=== PATIENT | female | born 1975 | race Caucasian/White ===

== ENCOUNTER 2018-04-09 11:46 | Outpatient (CLI) | payer BC ==
[~2018-04-09] VITALS: Ht 154.9 cm; Wt 88.5 kg
[~2018-04-09 11:46] MED LIST: ACHD5005 PO; AMLO2.5T PO; AMLO5TAB2 PO; ASCO10006 PO; BUPR100T8 PO; BUSP10TA95 PO; BUSP15TA60 PO; CALC1CAP5 PO; CARI350T PO; CARI350T27 PO; CETI-214 PO; CODE118S4 PO; CTRZ10T; CYCL-97 PO; CYCL10TA9 PO; DESV100T PO; DIAZ5TAB3 PO; DICY20TA10 PO; DILT120C10; DIPH25TA31 PO; FLX20C; FURO40TA4 PO; GABA-488 PO; HYDR-34 PO; HYDR50TA76 PO; LOPE2CAP PO; LORA10TA7 PO; MAGN250T13 PO; MECL-106 PO; MELO15TA39 PO; META800T PO; METH20TA36 PO; METO5TAB2 GT; METO5TAB2 PO; METO5TAB79 PO; MOME13HF IH; MORP100T37 PO; MORP100T8 PO; MTF500TCR; MULT-221 PO; MULT-305 PO; NALO25TA PO; OMEP20CA12 PO; OXYC-465 PO; PENI500T PO; POLY119P5 PO; POTA10TA10 PO; PROM25TA14 PO; ROPI4TAB3 PO; ROPINIROLE PO; RT-ALBUINH IH; SENN-137 PO; SPIR25TA5 PO; TEMA30CA PO; TRAZ150T42 PO; TRAZ150T72 PO; TRIAMTERENE/HCTZ; TURM500C4 PO; VITA1CAP PO; WARF4TAB70 PO; [UNRECOGNIZED DRUG - CODE] PO; [UNRECOGNIZED DRUG - OTHER]
[2018-04-09] MEDS ORDERED: GLUC-116 PO (12:02)
[2018-04-09] MEDS ORDERED: WARF-48 PO (12:02)
[2018-04-09] MEDS ORDERED: MULT-985 PO (12:02)
[2018-04-09] MEDS ORDERED: CARI350T27 PO (12:02)
[2018-04-09] MEDS ORDERED: MORP60CA18 PO (12:02)
[2018-04-09 12:08] VITALS: BP 118/68
== END 2018-04-09 14:37 | disposition home or self-care (01) ==
LOC: PREOP 11:46
PROVIDERS: ATTEND Orthopaedic Surgery
DX: Z01.818 Encounter for other preprocedural examination (principal)
CPT/HCPCS: 87081

== ENCOUNTER 2018-04-17 07:46 | Day surgery (SDC) | payer BC ==
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
[~2018-04-17] VITALS: Ht 154.9 cm; Wt 88.5 kg
[~2018-04-17 07:46] MED LIST changes: +GLUC-116 PO; +MORP60CA18 PO; +MULT-985 PO; +WARF-48 PO
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
[2018-04-17 08:00] VITALS: BP 119/72
[2018-04-17] MEDS ORDERED: ceFAZolin INJECTION 1,000 MG in NS (IVPB) 50 ML IV ONE (08:00)
[2018-04-17] MEDS: LACTATED RINGERS 1,000 ML IV PRN ×2 (08:15→10:23)
[2018-04-17] MEDS ORDERED: BUPIVACAINE 0.25% 30 ML (SENSORCAINE) VIAL ONE (08:25)
[2018-04-17] MEDS ORDERED: morphine PF (DURAMORPH) 10 MG/10 ML AMP ONE (08:25)
[2018-04-17] MEDS ORDERED: ONDANSETRON 4 MG/2 ML (SDV) Z0FRAN ONE (08:27)
[2018-04-17] MEDS ORDERED: fentaNYL INJECTION 100 MCG/2 ML AMP ONE ×3 (08:27→10:17)
[2018-04-17] MEDS ORDERED: SEVOFLURANE (ULTANE) 15 ML INHAL SOLN ONE ×3 (08:27→09:50)
[2018-04-17] MEDS ORDERED: DEXAMETHASONE 10 MG/ML (DECADRON) 1 ML VIAL ONE (08:27)
[2018-04-17] MEDS ORDERED: MIDAZOLAM 2 MG/2 ML (VERSED) VIAL ONE (08:27)
[2018-04-17] MEDS ORDERED: LIDOCAINE PF 2% 5 ML (XYLOCAINE) VIAL ONE (08:27)
[2018-04-17] MEDS ORDERED: proPOfol 200 MG/20 ML (DIPRIVAN) VIAL IV ONE (08:27)
[2018-04-17 08:50] LABS: BUN/CREATININE RATIO 24; CALCIUM 9.4 MG/DL (8.5-10.1); CARBON DIOXIDE 24 MMOL/L (21-32); CHLORIDE 103 MMOL/L (98-107); CREATININE SERUM 0.85 MG/DL (0.60-1.30); GFR ESTIMATED > 60; GLUCOSE 90 MG/DL (70-105); POTASSIUM 3.4 MMOL/L (3.6-5.0); SODIUM 136 MMOL/L (135-145)
[2018-04-17 08:52] LABS: INR 1.1 (0.8-1.4); PROTHROMBIN TIME PATIENT 14.1 SEC (12.2-14.7)
--- NOTE | 2018-04-17 09:21 | Progress Note-Pre Operative ---
Pre-Operative Progress Note H&P Reviewed The H&P was reviewed, patient examined and no changes noted. Date Seen by Provider: Apr 17, 2018 Time Seen by Provider: 09:19 Date H&P Reviewed: Apr 17, 2018 Time H&P Reviewed: 09:19 Pre-Operative Diagnosis: left patella condromalacia TUAN ADAIR MD Apr 17, 2018 09:21
--- NOTE | 2018-04-17 09:22 | Progress Note-Post Operative ---
Post-Operative Progess Note Surgeon (s)/Education And Development Manager (s) Surgeon TUAN ADAIR MD Education And Development Manager: jacquelin marr Pre-Operative Diagnosis left patella condromalacia Post-Operative Diagnosis left knee medial meniscus tear and chondromalacia medial femoral condyle Procedure & Operative Findings Date of Procedure 04/17/18 Procedure Performed/Findings left knee arthroscopic partial medial meniscectomy and chondroplasty of the medial femoral condyle Anesthesia Type GETA Estimated Blood Loss Estimated blood loss (mL): minimal Specimens/Packing Specimens Removed none Packing: none TUAN ADAIR MD Apr 17, 2018 09:22
[2018-04-17] MEDS ORDERED: HYDROcodone/APAP 7.5 MG/325 MG (LORTAB, LORCET PLUS) TABLET PO PRN (09:30)
[2018-04-17] MEDS ORDERED: MEPERIDINE (DEMEROL) INJ 50 MG/ML IVP PRN (10:00)
[2018-04-17] MEDS ORDERED: ONDANSETRON 4 MG/2 ML (SDV) Z0FRAN IVP PRN (10:00)
[2018-04-17] MEDS ORDERED: morphine INJ 10 MG/ML 1ML (SYR OR VIAL) ONE (10:03)
[2018-04-17] MEDS: morphine INJ 10 MG/ML 1ML (SYR OR VIAL) IVP PRN ×2 (10:07→10:14)
[2018-04-17] MEDS: fentaNYL INJECTION 100 MCG/2 ML AMP IVP PRN ×2 (10:22→10:32)
[2018-04-17 10:55] VITALS: BP 124/69
[2018-04-17 10:56] VITALS: BP 124/69
[2018-04-17 11:25] VITALS: BP 121/65
--- NOTE | 2018-04-17 11:35 | Physical Therapy Ortho Eval ---
PT Orthopedic Evaluation Type of Surgery Knee Scope left knee, WBAT Prior Level of Function Current Living Status: Spouse Locomotion (Upon Admit): Independent Established Durable Medical Eq: Straight Cane Subjective Subjective Patient in bed pre tx, agrees to PT, has 3/10 pain in left knee. Entry Into Home: Stairs With Railing Steps Into Home: 3 Steps Accessories: Railing Present Objective Objective Patient has intact light touch sensation about her left knee. Motor Control Motor Control: Motor Control WNL ROM left knee extension -1 degrees, flexion 90 degrees Strength NT Transfer Transfers (B, C, W/C) (FIM): 5 Gait Gait Assistive Device: FWW Left Lower Extremity: Left Weight Bearing Status LLE: Weight Bearing/Tolerated Gait (FIM): 5 Distance: 200' Gait Level of Assist: 5 Summary/Comments Patient ambulated 200' with a rolling walker with SBA and went up and down 1 step using a rolling walker with CGA. Patient ambulates with decreased flexion of left knee. Treatment Rendered Treatment: Therapeutic Exercises, Gait Train, Step Train Exercise Instruction: Quad Sets, Heel Slides, Ankle Pumps Assessment/Goals Goal Time Frame: 1 Visit Plan Treatment Plan: Discharge PT/Family Agrees to Plan: Yes Time Time In: 1110 Time Out: 1125 Total Billed Treatment Time: 15 Billed Treatment Time 1 visit EVL 15' Yes PT/OT Therapy GCodes Therapy Functional Limitation: Physical Therapy Test(s)/Tool used to determine: Level of Assistance Scale Functional Limitation-Current Charge Code: MOBCUR Modifier: CI Functional Limitation-Goal Charge Code: MOBGOAL Modifier: CI Functional Limitation-D/C Charge Codes: MOBDC Modifier: CI LIZBETH BAPTISTE PT Apr 17, 2018 11:35
[2018-04-17 11:55] VITALS: BP 131/69
--- NOTE | 2018-04-17 14:03 | Anesthesia-General Post-Op ---
General Patient Condition Mental Status/LOC: Same as Preop Cardiovascular: Satisfactory Nausea/Vomiting: Absent Respiratory: Satisfactory Pain: Controlled Complications: Absent Post Op Complications Complications None Follow Up Care/Instructions Patient Instructions None needed. Anesthesia/Patient Condition Patient Condition Patient was seen after the procedure and she was doing well, no complaints, stable vital signs, no apparent adverse anesthesia problems. CHARO CALHOUN DO Apr 17, 2018 14:03
--- NOTE | 2018-04-17 17:10 | OPERATIVE REPORT ---
DATE OF SERVICE: PREOPERATIVE DIAGNOSIS: Left knee chondromalacia patella. POSTOPERATIVE DIAGNOSES: 1. Left knee medial meniscal tear. 2. Left knee chondromalacia of the medial femoral condyle. PROCEDURE: 1. Left knee arthroscopic partial medial meniscectomy. 2. Left knee arthroscopic chondroplasty of the medial femoral condyle. SURGEON: Nicanor Adair MD. TOY ASSEMBLY SUPERVISOR: JAYE Christine, who assisted throughout the procedure and closed the incisions. ANESTHESIA: General endotracheal by Paul Barreto CRNA. TOURNIQUET TIME: Not applicable. ESTIMATED BLOOD LOSS: Minimal. DRAINS: None. COMPLICATIONS: None. POSTOPERATIVE PLAN: Routine arthroscopy protocol. The patient was transported to the recovery room awake and in stable condition. STATEMENT OF MEDICAL NECESSITY: The patient is a 42-year-old female with longstanding left knee pain, but she reported increasing left knee pain, catching, locking and swelling. She had pain with patellar loading with an effusion noted. She failed to respond to conservative measures and due to failure to improve with conservative measures and interference with activities of daily living. The patient elected to proceed with surgical intervention. FINDINGS OF PROCEDURE: Examination under anesthesia revealed range of motion of 2/0/140 with negative Mike, negative anterior and posterior drawer. No varus valgus laxity, negative pivot shift. Arthroscopic findings, the patella and trochlea demonstrated no gross chondral abnormalities. Medial and lateral gutters were clear. Lateral compartment demonstrated no meniscal or chondral pathology. ACL and PCL were intact. The medial compartment demonstrated a horizontal cleavage tear of the posterior horn and body of the medial meniscus involving approximately 1/2 posterior horn and body. There was grade II chondral flap in the anterior aspect of the femoral condyle in a 10 x 10 area. DESCRIPTION OF PROCEDURE: After risks and benefits of procedure were discussed and questions were answered, informed consent signed and placed on chart. The operative site was confirmed in the preoperative holding area initialed by surgeon. The patient was then transferred to the operating room and after adequate levels of general endotracheal anesthetics were obtained, a timeout was called confirming the operative site. The left lower extremity was then prepped and draped in the usual sterile fashion. The knee joint was injected with 60 mL of fluid and an inferolateral port was placed with the arthroscope under direct visualization, inferior medial portal was created. The menisci cruciates were carefully probed with the above findings noted. The unstable chondral flaps of the medial femoral condyle were debrided with shaver back to a stable edge and the posterior horn and body of the medial meniscus was debrided with a shaver and biter removing approximately 1/2 posterior horn and body. This was carefully probed and no further tearing or instability noted. The knee was copiously irrigated. Port site closed with 4-0 nylon in simple interrupted fashion. Knee was injected with Duramorph. The portal sites were infiltrated with plain Marcaine. A sterile dressing was applied and the patient was transported to the recovery room in awake and stable condition. Job ID: [id number] DocumentID: [id number] Dictated Date: 04/17/2018 09:59:37 Principal Account Clerk Date: 04/17/2018 17:09:57 Dictated By: NICANOR ADAIR MD
== END 2018-04-17 11:55 | disposition home or self-care (01) ==
LOC: SDC 07:46
PROVIDERS: ATTEND Orthopaedic Surgery
DX: S83.212A Bucket-handle tear of medial meniscus, current injury, left knee, initial encounter (principal); M94.262 Chondromalacia, left knee; Z86.711 Personal history of pulmonary embolism; Z79.01 Long term (current) use of anticoagulants; Z68.38 Body mass index [BMI] 38.0-38.9, adult; Z87.891 Personal history of nicotine dependence; V99.XXXA Unspecified transport accident, initial encounter
CPT/HCPCS: 36415; 80048; 84703; 85610

== ENCOUNTER 2020-11-15 08:34 | Outpatient (RCR) | payer BC ==
[~2020-11-15 08:34] MED LIST changes: +AMLO-250 PO; -AMLO2.5T PO; +AMLO2.5T4 PO; -AMLO5TAB2 PO; +ASCO100024 PO; -ASCO10006 PO; -CETI-214 PO; +CETI-458 PO; +DIAZ5TAB49 PO; -MECL-106 PO; +MECL-149 PO; -MORP100T37 PO; +MORP100T47 PO; -OMEP20CA12 PO; +OMEP20CA18 PO; -OXYC-465 PO; +OXYC-556 PO; -ROPI4TAB3 PO; +ROPI4TAB5 PO; +WARF4TAB3 PO; -WARF4TAB70 PO
== END 2020-11-29 09:15 | disposition home or self-care (01) ==
PROVIDERS: ATTEND Family Medicine
DX: I89.0 Lymphedema, not elsewhere classified (principal)

== ENCOUNTER → 2022-01-05 | Outpatient (CLI) | payer BC ==
[~2022-01-05] MED LIST changes: +BUPR-104 PO; -BUPR100T8 PO; +CYCL10TA25 PO; -CYCL10TA9 PO; +DICY20TA PO; -DICY20TA10 PO; +MORP60CA15 PO; -MORP60CA18 PO; +MULT-1054 PO; -MULT-985 PO
--- NOTE | 2022-01-05 18:51 | Diagnostic Imaging Report ---
Procedure: CT lumbar spine without contrast. Technique: Multiple contiguous axial images were obtained through the lumbar spine without the use of intravenous contrast. Sagittal and coronal reformations were then performed. Auto Exposure Controls were utilized during the CT exam to meet ALARA standards for radiation dose reduction. Date: January 05, 2022. Indication: 46-year-old female, low back pain. Evaluation of hardware. Comparison: CT abdomen and pelvis December 13, 2015. Findings: There is posterior spinal fusion hardware spanning L4-S1. The posterior spinal rods and fixation screws appear intact. There is approximately 1 mm of lucency surrounding the fixation screws. There is disc spacer material at L4-L5 and L5-S1. The disc spacer material at both levels protrudes beyond the expected posterior vertebral body margins by approximately 5.5 mm at the level of L4-L5 and 5.3 mm at the level of L5-S1. There is lack of mature bony bridging across the postoperative levels on the left. There is bony bridging on the right spanning across the postoperative levels. There are left-sided laminotomy changes at L4-L5. There is no identified cortical or aggressive bone destruction. There is no identified acute fracture. There are multilevel facet degenerative changes of the lumbar spine. The partially imaged portions of the sacroiliac joints are grossly unremarkable. Impression: 1. Posterior spinal fusion hardware spanning L4-S1 which is intact. There is incomplete bridging spanning the postoperative levels on the left. 2. Disc spacer material at L4-L5 and L5-S1 is protruding beyond the expected posterior vertebral body margins by approximately 5 to 6 mm at each level. 3. No acute osseous abnormality. Dictated by: Dictated on workstation # [id number]
== END ==
LOC: RAD 17:35
PROVIDERS: ATTEND Physician Assistant
DX: M51.26 Other intervertebral disc displacement, lumbar region (principal); M51.27 Other intervertebral disc displacement, lumbosacral region; Z98.1 Arthrodesis status
CPT/HCPCS: 72131

== ENCOUNTER → 2022-03-14 | Outpatient (CLI) | payer BC ==
[~2022-03-14] VITALS: Ht 154.9 cm; Wt 128.0 kg
[~2022-03-14] MED LIST changes: +CARI1.5C PO; +COMPOUND CREAM; +CYAN250010 PO; +FREM225A SQ; +HYDR-3817 PO; +LAMO100T69 PO; +METF-397 PO; +MORP15TA69 PO; +MORP30TA60 PO; +NALD0.2T3 PO; +NF-LAMO200 PO; +SEMA7TAB2 PO; +UBRO50TA PO; +VITA0.4T18 PO
== END | disposition home or self-care (01) ==
LOC: PREOP 05:41
PROVIDERS: ATTEND Surgery
DX: Z01.818 Encounter for other preprocedural examination (principal)

== ENCOUNTER 2022-03-16 11:16 | Day surgery (SDC) | payer BC ==
[2022-03-16] VITALS (10 sets, daily range): BP systolic 122–161; BP diastolic 80–90
[~2022-03-16] VITALS: Ht 154.9 cm; Wt 128.0 kg
[~2022-03-16 11:16] MED LIST changes: -HYDR-3817 PO
--- NOTE | 2022-03-16 11:50 | Progress Note-Pre Operative ---
Pre-Operative Progress Note H&P Reviewed The H&P was reviewed, patient examined and no changes noted. Date Seen by Provider: Mar 16, 2022 Time Seen by Provider: 11:50 Date H&P Reviewed: Mar 16, 2022 Time H&P Reviewed: 11:45 Pre-Operative Diagnosis: Right lower back mass WALI STEWARD APRN Mar 16, 2022 11:50
[2022-03-16] MEDS ORDERED: HYDR-3817 PO (11:52)
--- NOTE | 2022-03-16 11:52 | Discharge Inst-Surgical ---
D/C Lap Instructions-KIDO Reconcile Patient Problems Problems Reviewed?: Yes New, Converted, or Re-Newed RX: RX on Chart Follow Up Appt in 2 weeks Activity as tolerated No driving for 24 hours No driving while on pain medications Incentive Spirometry use every 2 hours while awake Regular Diet Symptoms to Report: Fever over 101 degree F, Nausea/Vomiting Infection Signs and Symptoms to report: Increased redness, Foul odor of wound, Increased drainage Bathing instructions: May shower Operative Area Clean/Dry; Keep incision clean/dry If any problems/questions: Contact your physician or go to Emergency Room WALI STEWARD APRN Mar 16, 2022 11:52
[2022-03-16] MEDS: LACTATED RINGERS 1,000 ML IV PRN ×2 (11:58→14:49)
[2022-03-16] MEDS ORDERED: HYDROcodone/APAP 5 MG/325 MG (LORTAB) TAB PO ONE (12:00)
[2022-03-16] MEDS ORDERED: ONDANSETRON 4 MG/2 ML (SDV) Z0FRAN IVP PRN ×2 (12:00→15:30)
[2022-03-16] MEDS ORDERED: ACETAMINOPHEN 325 MG TABLET PO PRN (12:00)
[2022-03-16] MEDS ORDERED: morphine INJ 10 MG/ML 1ML (SYR OR VIAL) IVP PRN (12:00)
[2022-03-16] MEDS ORDERED: ceFAZolin 2 GM IV Premixed 50 ML IV ONE (12:00)
[2022-03-16] MEDS ORDERED: BUPIVACAINE 0.5% 30 ML (SENSORCAINE) VIAL ONE (13:04)
[2022-03-16] MEDS ORDERED: LIDOCAINE/EPI 2% 1:100,00 (XYLOCAINE) 20 ML VIAL ONE (13:04)
[2022-03-16] MEDS ORDERED: SEVOFLURANE (ULTANE) 15 ML INHAL SOLN ONE ×2 (13:48→15:07)
[2022-03-16] MEDS ORDERED: ONDANSETRON 4 MG/2 ML (SDV) Z0FRAN ONE (13:48)
[2022-03-16] MEDS ORDERED: LIDOCAINE PF 2% 5 ML (XYLOCAINE) VIAL ONE (13:48)
[2022-03-16] MEDS ORDERED: MIDAZOLAM 2 MG/2 ML (VERSED) VIAL ONE (13:48)
[2022-03-16] MEDS ORDERED: fentaNYL INJ 100 MCG/2 ML AMP ONE (13:48)
[2022-03-16] MEDS ORDERED: proPOfol 200 MG/20 ML (DIPRIVAN) VIAL IV ONE (13:48)
--- NOTE | 2022-03-16 14:25 | Diagnostic Imaging Report ---
Indication: Right hip mass. Sonographic interrogation of the area of mass in the posterior right hip was performed. There is a cystic mass at this location measuring 2.6 x 3.0 x 3.8 cm. This area was marked on the patient's skin for Dr. Olmedo. IMPRESSION: A large cystic mass at the area palpable abnormality posterior right hip. Dictated by: Dictated on workstation # [id number]
[2022-03-16] MEDS ORDERED: HYDROmorphone 2 MG/ML VIAL (DILAUDID) IV ONE (15:30)
--- NOTE | 2022-03-17 01:00 | OPERATIVE REPORT ---
DATE OF SERVICE: 03/16/2022 ATTENDING PRIMARY CARE PHYSICIAN: Dr. Lon Ruano. PREOPERATIVE DIAGNOSIS: Symptomatic back lesion, which has grown larger in size. POSTOPERATIVE DIAGNOSIS: Overlying lipomatous structure with a paraspinous encapsulated hematoma. PROCEDURE: Excision of lipoma and paraspinous cystic lesion with a combined size of the lesion approximately 6 x 6 cm in size. SURGEON: Huseyin Mohr MD. AUTOMATIC SERGING MACHINE OPERATOR: Chucky Cabrera APRN. ANESTHESIA: General endotracheal. ESTIMATED BLOOD LOSS: Minimal. FINDINGS: Lipomatous subcutaneous lesion; however, subfascial encapsulated chronic hematoma with no purulence to indicate any infection. The size of the lesion as well as the cystic lesion approximately 6 x 6 cm in size. DISPOSITION: The patient tolerated the procedure well. INDICATIONS: The patient is a 46-year-old female who does have a longstanding history of degenerative joint disease and has had several joint surgeries. She had a spinal fusion L4 through S1 in 06/2021. She states that she has had some pain in the left hip and did undergo a CT scan, which did show some degenerative joint disease of the left hip; however, a lesion of the back was also identified, which was relatively large. This was also palpable. This was a paraspinous lesion, which appeared to be well encapsulated. She also does have a history of lipomas in the past that had been removed. DESCRIPTION OF PROCEDURE: The patient was brought to the operating room, laid supine on the table. After adequate IV pain and sedative medications and general endotracheal intubation, the patient was placed in the left lateral decubitus position. The back was then prepped and draped in standard surgical fashion. A 0.5% Marcaine with epinephrine was used to anesthetize overlying skin above the lesion, which was marked by ultrasonography beforehand. A vertical skin incision was then made using a 15 blade. A lipomatous lesion consistent with a lipoma was identified and dissected out using electrocautery. Underneath this subfascia was a cystic lesion within it appeared to be old, chronic hematoma, encapsulated hematoma with no purulence to indicate any active infection. The entire cystic cavity was then excised using electrocautery with visualization of good hemostasis. The entire dimensions of the lesion was approximately 6 x 6 cm. Good hemostasis was observed, then the subcutaneous tissue was reapproximated using 3-0 Vicryl interrupted suture. Skin was closed using 4-0 Monocryl running subcuticular suture in a flap complex manner. Wound was then cleaned and covered with Dermabond. The patient tolerated the procedure well. We will start IV normal pain medication as well as a clear liquid diet. When she is tolerating clears, has good pain control with oral pain medications, ambulating well, we will discharge her home where she will be instructed to do no heavy lifting or exertion for the next two weeks. Job ID: [id number] DocumentID: [id number] Dictated Date: 03/16/2022 14:55:31 Mine Geologist Date: 03/17/2022 00:59:51 Dictated By: HUSEYIN MOHR MD MTDD
== END 2022-03-16 17:16 | disposition home or self-care (01) ==
LOC: SDC 11:16 → EDSTATUS 12:00 → SDC 17:16
PROVIDERS: ATTEND Surgery
DX: D17.1 Benign lipomatous neoplasm of skin and subcutaneous tissue of trunk (principal); E66.01 Morbid (severe) obesity due to excess calories; Z68.43 Body mass index [BMI] 50.0-59.9, adult
CPT/HCPCS: 76942; 82947; 84703; 87070; 87075; 87081; 87205

== ENCOUNTER 2022-03-19 22:17 | Emergency (ER) | payer BC ==
[~2022-03-19] VITALS: Ht 154.9 cm; Wt 124.7 kg
[~2022-03-19 22:17] MED LIST changes: +HYDR-3817 PO
[2022-03-20 00:35] LABS: BASOPHILS # (AUTO) 0.1 10^3/uL (0.0-0.1); BASOPHILS % (AUTO) 1 % (0-10); EOSINOPHILS # (AUTO) 0.1 10^3/uL (0.0-0.3); EOSINOPHILS % (AUTO) 1 % (0-10); HEMATOCRIT 41 % (35-52); HEMOGLOBIN 12.8 g/dL (11.5-16.0); LYMPHOCYTES # (AUTO) 3.5 10^3/uL (1.0-4.0); LYMPHOCYTES % (AUTO) 33 % (12-44); MEAN CORPUSCULAR HEMOGLOBIN 28 pg (25-34); MEAN CORPUSCULAR HGB CONC 31 g/dL (32-36); MEAN CORPUSCULAR VOLUME 91 fL (80-99); MEAN PLATELET VOLUME 10.8 fL (9.0-12.2); MONOCYTES # (AUTO) 0.6 10^3/uL (0.0-1.0); MONOCYTES % (AUTO) 6 % (0-12); NEUTROPHILS # (AUTO) 6.4 10^3/uL (1.8-7.8); NEUTROPHILS % (AUTO) 59 % (42-75); PLATELET COUNT 291 10^3/uL (130-400); WHITE BLOOD COUNT 10.8 10^3/uL (4.3-11.0)
[2022-03-20 00:41] LABS: INR 1.5 (0.8-1.4); PROTHROMBIN TIME PATIENT 18.1 SEC (12.2-14.7)
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
[2022-03-20 01:21] VITALS: BP 133/85
== END 2022-03-20 01:22 | disposition home or self-care (01) ==
LOC: EDUNIT# 22:17 → ER 22:18
DX: M96.830 Postprocedural hemorrhage of a musculoskeletal structure following a musculoskeletal system procedure (principal); Z87.891 Personal history of nicotine dependence; Z79.01 Long term (current) use of anticoagulants
CPT/HCPCS: 36415; 85025; 85610; 85730; 99282